=== PATIENT | female | born 1985 | race Caucasian/White ===

== ENCOUNTER 2022-12-26 11:35 | Emergency (ER) | payer BC ==
[2022-12-26 11:47] VITALS: BP 113/70; PULSE 82; RESP 15; TEMP 98.2; BMI 22.9
== END 2022-12-26 13:04 | disposition home or self-care (01) ==
LOC: FER 11:35
DX: S93.432A Sprain of tibiofibular ligament of left ankle, initial encounter (principal); S80.01XA Contusion of right knee, initial encounter; M25.561 Pain in right knee; R22.43 Localized swelling, mass and lump, lower limb, bilateral; X50.1XXA Overexertion from prolonged static or awkward postures, initial encounter
CPT/HCPCS: 73610-TC-LT-FY; 99283-25

== ENCOUNTER 2024-06-04 14:31 | Emergency (ER) | payer BC ==
[2024-06-04 15:08] VITALS: BP 128/89; PULSE 103; RESP 20; TEMP 98.8; BMI 24.6
[2024-06-04 16:18] LABS: HEMATOCRIT 38.5 % (32.4-45.2); HEMOGLOBIN 12.8 G/dL (10.7-15.3); MCH 31.1 pg (25.7-33.7); MCHC 33.3 g/dl (32.0-36.0); MEAN CELL VOLUME 93.3 fl (80-96); MEAN PLT VOLUME 8.4 fl (7.5-11.1); PLATELET COUNT 276.2 10^3/uL (134-434); RBC 4.13 10^6/uL (3.60-5.2); RDW 13.1 % (11.6-15.6); WHITE BLOOD COUNT 5.7 10^3/uL (4.0-10.8)
[2024-06-04 16:30] LABS: ALBUMIN 4.4 g/dl (3.4-5.0); ALK PHOS 31 U/L (45-117); ANION GAP 4 mmol/L (4-13); BILIRUBIN,TOTAL 0.2 mg/dl (0.2-1); CALCIUM 9.6 mg/dl (8.5-10.1); CHLORIDE 107 mmol/L (98-107); CO2 30 mmol/L (21-32); CREATININE 0.8 mg/dl (0.6-1.3); GLUCOSE,RANDOM 119 mg/dl (74-106); POTASSIUM 4.1 mmol/L (3.5-5.1); SGOT/AST 12 U/L (15-37); SGPT/ALT 7 U/L (7-52); SODIUM 141 mmol/L (136-145); TOT PROT 6.5 g/dl (6.4-8.2)
[2024-06-04 17:56] LABS: HIV INTERPRETATION NEGATIVE (NEGATIVE)
[2024-06-04 18:24] LABS: PLATELET ESTIMATE ADEQUATE
== END 2024-06-04 17:38 | disposition home or self-care (01) ==
LOC: FER 14:31
DX: R07.9 Chest pain, unspecified (principal)
CPT/HCPCS: 36415; 71045-TC-FY; 80053; 84439; 84443; 84484; 85027; 86803; 87389; 93005; 99285-25